=== PATIENT | female | born 1995 | race Caucasian/White ===

== ENCOUNTER → 2018-01-06 | Outpatient (CLI) | payer OTHER | LOC: GMAE 10:52 | PROVIDERS: ATTEND Family Medicine | DX: E11.9 Type 2 diabetes mellitus without complications (principal); N91.2 Amenorrhea, unspecified ==

== ENCOUNTER → 2018-01-26 | Outpatient (CLI) | payer OTHER ==
--- NOTE | 2018-01-26 15:47 | US ---
EXAM DESCRIPTION: Pelvis Transvaginal: Ultrasound. CLINICAL HISTORY: AMENORRHEA COMPARISON: None. TECHNIQUE: Endovaginal scanning; Anaya-scale and Doppler modes. FINDINGS: Uterus 6.2 x 4.4 x 3.0 cm . Endometrial thickness is 2.8 mm. Myometrium appears homogeneous. Uterus not retroflexed. Cervix unremarkable. Cul-de-sac contains no fluid. Right ovary 4.1 x 2.6 x 2.1 cm.. Normal waveform and color Doppler vascularity. Multiple follicles but no cysts. No adnexal mass or free fluid. Left ovary 2.2 x 2.1 x 1.5 cm. Normal waveform and color Doppler vascularity. Small follicles but no cysts. No adnexal mass or free fluid. IMPRESSION: 1. Normal position and size of uterus. No endometrial thickening. No fluid in the cul-de-sac. 2. Bilateral ovaries normal size and vascularity. Small follicles bilaterally with no cysts. No adnexal mass or fluid. Electronically signed by: Jonatan Subramanian MD 01/26/2018 3:45 PM CDT
== END ==
LOC: US 12:23
PROVIDERS: ATTEND Family Medicine
DX: N91.2 Amenorrhea, unspecified (principal)

== ENCOUNTER → 2018-03-02 | Outpatient (CLI) | payer OTHER | LOC: GMAE 14:41 | PROVIDERS: ATTEND Family Medicine | DX: N91.2 Amenorrhea, unspecified (principal); N92.6 Irregular menstruation, unspecified ==